=== PATIENT | male | born 1980 | race Caucasian/White ===

== ENCOUNTER 2018-08-17 21:03 | Emergency (ER) | payer OTHER ==
[2018-08-17 21:24] VITALS: BP 133/52; PULSE 55; TEMP 98.4; BMI 46.8
[2018-08-17] MEDS ORDERED: LIDOCAINE PATCH REMOVAL MC SCH (22:00)
[2018-08-17] MEDS ORDERED: LIDOCAINE 5% TOPICAL PATCH TP ONE (22:05)
[2018-08-17] MEDS ORDERED: LIDOCAINE 5% TOPICAL PATCH ONE (22:12)
[2018-08-17] MEDS ORDERED: CYCLOBENZAPRINE HCL 5 MG TABLET PO ONE (22:15)
[2018-08-17] MEDS ORDERED: IBUPROFEN 600 MG TABLET (FP) PO ONE ×2 (22:17→22:26)
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
[2018-08-17] MEDS ORDERED: CYCLOBENZAPRINE HCL 10 MG TABLET (FP) ONE (22:26)
== END 2018-08-17 23:07 | disposition home or self-care (01) ==
LOC: JER 21:03
DX: S46.812A Strain of other muscles, fascia and tendons at shoulder and upper arm level, left arm, initial encounter (principal); S29.012A Strain of muscle and tendon of back wall of thorax, initial encounter; V43.52XA Car driver injured in collision with other type car in traffic accident, initial encounter; Y93.89 Activity, other specified; Y92.410 Unspecified street and highway as the place of occurrence of the external cause
CPT/HCPCS: 99283-25